=== PATIENT | male | born 2000 | race Caucasian/White ===

== ENCOUNTER 2018-02-01 10:33 | Observation (INO) | payer BC ==
[2018-02-01] MEDS ORDERED: Sodium Chloride 0.9% 10 ML Syringe FLUSH PRN ×2 (10:41→12:37)
[2018-02-01] MEDS ORDERED: LORazepam 2 MG/ML SDV IVPUSH ONE (10:42)
--- NOTE | 2018-02-01 10:46 | EDM.PDOC ---
ED HPI GENERAL MEDICAL PROBLEM - General Chief Complaint: Chest Pain Stated Complaint: DIZZY LIGHT HEADED CHEST PAIN Time Seen by Provider: 02/01/18 10:36 Source of Information: Reports: Patient, RN Notes Reviewed History Limitations: Reports: No Limitations - History of Present Illness INITIAL COMMENTS - FREE TEXT/NARRATIVE: 17-year-old gentleman presents to the emergency department day complaint of chest pain shortness of breath and diaphoresis, he states the pain started early this morning and has progressively gotten worse, he does admit to wake boarding over the weekend he did have some white bouts where he landed on his chest and abdomen but was able to function fine afterwards. He has no past medical history Chest Pain Score (Numeric/FACES): 9 - Related Data Allergies Allergy/AdvReac Type Severity Reaction Status Date / Time No Known Allergies Allergy Verified 02/01/18 10:41 Home Meds: Home Meds NK [No Known Home Meds] 02/01/18 [History] Past Medical History - Past Health History Medical/Surgical History: Denies Medical/Surgical History Social & Family History - Tobacco Use Smoking Status *Q: Never Smoker ED ROS GENERAL - Review of Systems Review Of Systems: See Below Constitutional: Reports: No Symptoms HEENT: Reports: No Symptoms Respiratory: Reports: Shortness of Breath. Denies: Cough, Sputum Cardiovascular: Reports: Chest Pain GI/Abdominal: Reports: Nausea Musculoskeletal: Reports: No Symptoms Skin: Reports: No Symptoms Neurological: Reports: No Symptoms Psychiatric: Reports: No Symptoms ED EXAM, GENERAL - Physical Exam Exam: See Below Free Text/Narrative:: General: Male, moderate discomfort secondary to pain, alert and oriented x3 HEENT: head is atraumatic normocephalic, eyes pupils equal round reactive to light, sclera clear no conjunctivitis appreciated. Ears tympanic membranes clear and [place] landmarks and light reflex are present bilaterally canals are clear. Nose no septal deviation, nares are clear, no blood present. Mouth mucosa is moist and pink no erythema or exudate noted in soft palate, tongue is midline uvula is midline, dentition with braces is intact. Neck: Supple no thyromegaly no tracheal deviation. Nodes: Cervical nodes subclavicular nodes nontender no palpable lymphadenopathy noted. Lungs: clear to auscultation bilaterally with symmetrical respirations, no adventitious noise appreciated. CV: Regular rate and rhythm S1 and S2 appreciated no murmurs rubs or gallops noted. Abdomen: Soft, nontender, no palpable masses or organomegaly appreciated, no distention no guarding bowel sounds are present, . Neuro: Cranial nerves II through XII grossly intact Skin: Warm and dry, intact Extremities: No lower extremity edema appreciated, pedal pulse is +2. E-FAST exam Subcostal and parasternal view: reveals no hematoma pericardium four-chamber heart with good activity Right sided abdominal view: reveals Louis's pouch no hemothorax Left-sided abdominal view: spleen and kidney no hemothorax noted Pelvic view: bladder identified no peritoneal blood noted Pleural view: reveal sliding sign bilaterally no pneumothorax noted Course - Vital Signs Last Recorded V/S: Last Vital Signs Temp 99.7 F 02/01/18 16:19 Pulse 75 02/01/18 17:03 Resp 18 02/01/18 17:03 BP 118/78 02/01/18 17:03 Pulse Ox 100 02/01/18 17:03 - Orders/Labs/Meds Orders: Active Orders 24 hr Category Date Time Status Cardiac Monitoring [RC] .As Directed Care 02/01/18 10:41 Active EKG Documentation Completion [RC] ASDIRECTED Care 02/01/18 10:42 Active Peripheral IV Care [RC] . DIRECTED Care 02/01/18 10:42 Active Peripheral IV Care [RC] . DIRECTED Care 02/01/18 12:38 Active DRUG SCREEN, URINE [URCHEM] Stat Lab 02/01/18 14:08 Ordered UA W/MICROSCOPIC [URIN] Stat Lab 02/01/18 14:08 Ordered Sodium Chloride 0.9% [Normal Saline] 78 ml Med 02/01/18 12:45 Active IV ASDIRECTED Sodium Chloride 0.9% [Saline Flush] Med 02/01/18 10:41 Active 10 ml FLUSH ASDIRECTED PRN Sodium Chloride 0.9% [Saline Flush] Med 02/01/18 12:37 Active 10 ml FLUSH ASDIRECTED PRN Peripheral IV Insertion Adult [OM.PC] Stat Oth 02/01/18 10:41 Ordered Peripheral IV Insertion Adult [OM.PC] Urgent Oth 02/01/18 12:37 Ordered Saline Lock Insert [OM.PC] Stat Oth 02/01/18 10:41 Ordered EKG 12 Lead [EK] Stat Ther 02/01/18 10:42 Ordered Medication Orders Sodium Chloride (Normal Saline) 78 mls @ 3.5 mls/sec IV ASDIRECTED WILLIAM Last Admin: 02/01/18 13:13 Dose: 3.5 mls/sec Sodium Chloride (Saline Flush) 10 ml FLUSH ASDIRECTED PRN PRN Reason: Keep Vein Open Last Admin: 02/01/18 11:21 Dose: 10 ml Sodium Chloride (Saline Flush) 10 ml FLUSH ASDIRECTED PRN PRN Reason: Keep Vein Open Labs: Laboratory Tests 02/01/18 02/01/18 02/01/18 Range/Units 10:35 10:41 10:41 WBC 11.7 H (4.5-11.0) K/uL RBC 5.56 (4.30-5.90) M/uL Hgb 15.9 H (12.0-15.0) g/dL Hct 45.0 (40.0-54.0) % MCV 81 (80-98) fL MCH 29 (27-31) pg MCHC 35 (32-36) % Plt Count 212 (150-400) K/uL Neut % (Auto) 70 H (36-66) % Lymph % (Auto) 14 L (24-44) % [place] % (Auto) 16 H (2-6) % Eos % (Auto) 0 L (2-4) % Baso % (Auto) 0 (0-1) % Sodium 134 L (140-148) mmol/L Potassium 3.3 L (3.6-5.2) mmol/L Chloride 100 (100-108) mmol/L Carbon Dioxide 21 (21-32) mmol/L Anion Gap 16.3 H (5.0-14.0) mmol/L BUN 15 (7-18) mg/dL Creatinine 1.0 (0.8-1.3) mg/dL Est Cr Clr Drug Dosing TNP Estimated GFR (MDRD) > 60 (>60) Glucose 110 H (74-106) mg/dL Calcium 9.0 (8.5-10.1) mg/dL Total Bilirubin 0.7 (0.2-1.0) mg/dL AST 18 (15-37) U/L ALT 26 (12-78) U/L Alkaline Phosphatase 90 (46-116) U/L Troponin I < 0.017 (0.000-0.056) ng/mL C-Reactive Protein (0.0-0.3) mg/dL Total Protein 7.3 (6.4-8.2) g/dL Albumin 4.0 (3.4-5.0) g/dL Globulin 3.3 (2.3-3.5) g/dL Albumin/Globulin Ratio 1.2 (1.2-2.2) Lipase 86 (73-393) U/L Urine Color Urine Appearance Urine pH (4.5-8.0) Ur Specific [place] (1.008-1.030) Urine Protein (NEGATIVE) mg/dL Urine Glucose (UA) (NEGATIVE) mg/dL Urine Ketones (NEGATIVE) mg/dL Urine Occult Blood (NEGATIVE) Urine Nitrite (NEGAITVE) Urine Bilirubin (NEGATIVE) Urine Urobilinogen (NORMAL) mg/dL Ur Leukocyte Esterase (NEGATIVE) Urine RBC (0-5) Urine WBC (0-5) Ur Epithelial Cells Amorphous Sediment Urine Bacteria Urine Mucus Urine Opiates Screen (NEGATIVE) Ur Oxycodone Screen (NEGATIVE) Urine Methadone Screen (NEGATIVE) Ur Propoxyphene Screen (NEGATIVE) Ur Barbiturates Screen (NEGATIVE) Ur Tricyclics Screen (NEGATIVE) Ur Phencyclidine Scrn (NEGATIVE) Ur Amphetamine Screen (NEGATIVE) U Methamphetamines Scrn (NEGATIVE) Urine MDMA Screen (NEGATIVE) U Benzodiazepines Scrn (NEGATIVE) U Cocaine Metab Screen (NEGATIVE) U Marijuana (THC) Screen (NEGATIVE) 02/01/18 02/01/18 02/01/18 Range/Units 10:42 14:08 14:08 WBC (4.5-11.0) K/uL RBC (4.30-5.90) M/uL Hgb (12.0-15.0) g/dL Hct (40.0-54.0) % MCV (80-98) fL MCH (27-31) pg MCHC (32-36) % Plt Count (150-400) K/uL Neut % (Auto) (36-66) % Lymph % (Auto) (24-44) % [place] % (Auto) (2-6) % Eos % (Auto) (2-4) % Baso % (Auto) (0-1) % Sodium (140-148) mmol/L Potassium (3.6-5.2) mmol/L Chloride (100-108) mmol/L Carbon Dioxide (21-32) mmol/L Anion Gap (5.0-14.0) mmol/L BUN (7-18) mg/dL Creatinine (0.8-1.3) mg/dL Est Cr Clr Drug Dosing Estimated GFR (MDRD) (>60) Glucose (74-106) mg/dL Calcium (8.5-10.1) mg/dL Total Bilirubin (0.2-1.0) mg/dL AST (15-37) U/L ALT (12-78) U/L Alkaline Phosphatase (46-116) U/L Troponin I (0.000-0.056) ng/mL C-Reactive Protein 2.72 H (0.0-0.3) mg/dL Total Protein (6.4-8.2) g/dL Albumin (3.4-5.0) g/dL Globulin (2.3-3.5) g/dL Albumin/Globulin Ratio (1.2-2.2) Lipase (73-393) U/L Urine Color Yellow Urine Appearance Clear Urine pH 7.0 (4.5-8.0) Ur Specific [place] 1.005 L (1.008-1.030) Urine Protein Trace (NEGATIVE) mg/dL Urine Glucose (UA) Normal (NEGATIVE) mg/dL Urine Ketones 50 H (NEGATIVE) mg/dL Urine Occult Blood Negative (NEGATIVE) Urine Nitrite Negative (NEGAITVE) Urine Bilirubin Small (NEGATIVE) Urine Urobilinogen 4 (NORMAL) mg/dL Ur Leukocyte Esterase Negative (NEGATIVE) Urine RBC 0-5 (0-5) Urine WBC 0-5 (0-5) Ur Epithelial Cells Not seen Amorphous Sediment Not seen Urine Bacteria Not seen Urine Mucus Not seen Urine Opiates Screen Negative (NEGATIVE) Ur Oxycodone Screen Negative (NEGATIVE) Urine Methadone Screen Negative (NEGATIVE) Ur Propoxyphene Screen Negative (NEGATIVE) Ur Barbiturates Screen Negative (NEGATIVE) Ur Tricyclics Screen Negative (NEGATIVE) Ur Phencyclidine Scrn Negative (NEGATIVE) Ur Amphetamine Screen Negative (NEGATIVE) U Methamphetamines Scrn Negative (NEGATIVE) Urine MDMA Screen Negative (NEGATIVE) U Benzodiazepines Scrn Presumptive positive H (NEGATIVE) U Cocaine Metab Screen Negative (NEGATIVE) U Marijuana (THC) Screen Negative (NEGATIVE) Meds: Medications Generic Name Dose Route Start Last Admin Trade Name Freq PRN Reason Stop Dose Admin Sodium Chloride 78 mls @ 3.5 mls/sec 02/01/18 12:45 02/01/18 13:13 Normal Saline IV 3.5 mls/sec ASDIRECTED WILLIAM Administration Sodium Chloride 10 ml 02/01/18 10:41 02/01/18 11:21 Saline Flush FLUSH 10 ml ASDIRECTED PRN Administration Keep Vein Open Sodium Chloride 10 ml 02/01/18 12:37 Saline Flush FLUSH ASDIRECTED PRN Keep Vein Open Discontinued Medications Generic Name Dose Route Start Last Admin Trade Name Freq PRN Reason Stop Dose Admin Al Hydroxide/Mg Hydroxide 15 0 ml 02/01/18 15:02 02/01/18 15:24 ml/ Lidocaine HCl 15 ml PO 02/01/18 15:03 15 ml ONETIME ONE Administration Fentanyl 50 mcg 02/01/18 12:38 02/01/18 12:45 Sublimaze IVPUSH 02/01/18 12:39 50 mcg ONETIME ONE Administration Fentanyl 50 mcg 02/01/18 17:17 02/01/18 17:25 Sublimaze IVPUSH 02/01/18 17:18 50 mcg ONETIME ONE Administration Hyoscyamine 0.125 mg 02/01/18 14:32 02/01/18 14:52 Hyomax-Sl SL 02/01/18 14:33 0.125 mg ONETIME ONE Administration Lactated Ringer's 1,000 mls @ 999 mls/hr 02/01/18 12:37 02/01/18 12:45 Ringers, Lactated IV 02/01/18 13:37 999 mls/hr BOLUS ONE Administration Iopamidol 124 ml 02/01/18 12:45 02/01/18 13:12 Isovue-300 (61%) IV 150 ml . DIRECTED WILLIAM Administration Ketorolac Tromethamine 30 mg 02/01/18 11:41 02/01/18 11:50 Toradol IVPUSH 02/01/18 11:42 30 mg ONETIME ONE Administration Lorazepam 1 mg 02/01/18 10:42 02/01/18 10:55 Ativan IVPUSH 02/01/18 10:43 1 mg ONETIME ONE Administration Ondansetron HCl 4 mg 02/01/18 11:41 02/01/18 11:51 Zofran IVPUSH 02/01/18 11:42 4 mg ONETIME ONE Administration Pantoprazole Sodium 40 mg 02/01/18 16:11 02/01/18 16:36 Protonix Iv IVPUSH 02/01/18 16:12 40 mg ONETIME ONE Administration Sodium Chloride 10 ml 02/01/18 12:44 02/01/18 13:12 Saline Flush FLUSH 02/01/18 12:45 10 ml ONETIME ONE Administration Departure - Departure Time of Disposition: 17:33 Disposition: Admitted As Inpatient 64 Condition: Good Clinical Impression: Epigastric abdominal pain - My Orders Last 24 Hours: My Active Orders 02/01/18 10:41 Cardiac Monitoring [RC] .As Directed Sodium Chloride 0.9% [Saline Flush] 10 ml FLUSH ASDIRECTED PRN Peripheral IV Insertion Adult [OM.PC] Stat Saline Lock Insert [OM.PC] Stat 02/01/18 10:42 EKG Documentation Completion [RC] ASDIRECTED Peripheral IV Care [RC] . DIRECTED EKG 12 Lead [EK] Stat 02/01/18 12:37 Sodium Chloride 0.9% [Saline Flush] 10 ml FLUSH ASDIRECTED PRN Peripheral IV Insertion Adult [OM.PC] Urgent 02/01/18 12:38 Peripheral IV Care [RC] . DIRECTED 02/01/18 12:45 Sodium Chloride 0.9% [Normal Saline] 78 ml IV ASDIRECTED 02/01/18 14:08 DRUG SCREEN, URINE [URCHEM] Stat UA W/MICROSCOPIC [URIN] Stat - Assessment/Plan Last 24 Hours: My Active Orders 02/01/18 10:41 Cardiac Monitoring [RC] .As Directed Sodium Chloride 0.9% [Saline Flush] 10 ml FLUSH ASDIRECTED PRN Peripheral IV Insertion Adult [OM.PC] Stat Saline Lock Insert [OM.PC] Stat 02/01/18 10:42 EKG Documentation Completion [RC] ASDIRECTED Peripheral IV Care [RC] . DIRECTED EKG 12 Lead [EK] Stat 02/01/18 12:37 Sodium Chloride 0.9% [Saline Flush] 10 ml FLUSH ASDIRECTED PRN Peripheral IV Insertion Adult [OM.PC] Urgent 02/01/18 12:38 Peripheral IV Care [RC] . DIRECTED 02/01/18 12:45 Sodium Chloride 0.9% [Normal Saline] 78 ml IV ASDIRECTED 02/01/18 14:08 DRUG SCREEN, URINE [URCHEM] Stat UA W/MICROSCOPIC [URIN] Stat Plan: Assessment Acuity = acute Site and laterality = epigastric pain Etiology = unclear etiology Manifestations = none Location of injury = Home Lab values = WBC elevated 11.7 consistent with leukocytosis, sodium 134 consistent hyponatremia potassium 3.3 consistent hypokalemia, CRP elevated 2.72 months or significance, lipase normal at 86 urinalysis reveals 50 ketones consistent ketonuria urine drug screen is negative, CT scan of the abdomen shows no acute process Plan He received a variety medications including Ativan, Toradol, Anaspaz, GI cocktail with no relief fentanyl did subside the pain called discussed the case with hospitalist it operations specialist he agreed to come and evaluate the patient emergency department for admission, also discussed case with general surgery they agreed to do an EGD evaluation This note was dictated using [employer] voice recognition software please call with any questions on syntax or grammar.
--- NOTE | 2018-02-01 11:32 | CR ---
CHEST: 2 view CLINICAL HISTORY:Chest pain COMPARISON:None FINDINGS: Lung hendrix are clear. Heart and pulmonary vascularity appear normal. No effusions are see n. IMPRESSION: No acute cardiopulmonary process
[2018-02-01] MEDS ORDERED: Ketorolac 30 MG/ML SDV IVPUSH ONE (11:41)
[2018-02-01] MEDS ORDERED: Ondansetron 4 MG/2 ML SDV IVPUSH ONE (11:41)
[2018-02-01] MEDS ORDERED: Lactated Ringers 1,000 ML IV ONE (12:37)
[2018-02-01] MEDS ORDERED: fentaNYL 100 MCG/2 ML SDV IVPUSH ONE ×3 (12:38→19:09)
[2018-02-01] MEDS ORDERED: Iopamidol 612 MG/ML 150 ML Bottle IV SCH (12:45)
[2018-02-01] MEDS: Sodium Chloride 0.9% 10 ML Syringe FLUSH ONE (13:12)
--- NOTE | 2018-02-01 13:16 | CT ---
Abdomen Pelvis w Cont CLINICAL HISTORY: Epigastric pain COMPARISON: None. TECHNIQUE: Axial tomographic images are obtained from the dome of the diaphragm to the pubic symphysi s without IV contrast enhancement. No oral contrast was used. Auto dosage reduction and iterative rec onstruction techniques employed. FINDINGS: The lung bases are clear. The liver shows no mass or biliary dilatation. The gallbladder perez s a normal appearance. The spleen has a normal size and shape. The pancreas shows no mass or inflamma tory change. The adrenal glands appear normal bilaterally. The kidneys shows no mass or hydronephrosi s. Ureters have a normal course and caliber. The aorta has a normal contour. There is no suspicious r etroperitoneal adenopathy. Abdominal pelvic fat planes and low pelvic side gary are well demarcated. The bladder has normal con tour. The appendix is normal contour. IMPRESSION: No mass, adenopathy or inflammatory change.
[2018-02-01] MEDS ORDERED: Hyoscyamine 0.125 MG Tab.SL SL ONE (14:32)
[2018-02-01] MEDS ORDERED: Alum Hydrox/Mag Hydrox/Simeth 15 ML, Lidocaine 2% 15 ML PO ONE ×2 (15:02)
[2018-02-01] MEDS ORDERED: Pantoprazole 40 MG Vial IVPUSH ONE ×2 (16:11→19:53)
[2018-02-01] MEDS ORDERED: Propofol 200 MG/20 ML SDV ONE (17:40)
[2018-02-01] MEDS ORDERED: fentaNYL 100 MCG/2 ML SDV ONE (17:40)
[2018-02-01] MEDS ORDERED: Midazolam 1 MG/ML 2 ML SDV ONE (17:40)
[2018-02-01] MEDS ORDERED: Ondansetron 4 MG Tab.DIS PO PRN (19:53)
[2018-02-01] MEDS ORDERED: Acetaminophen 325 MG Tab PO PRN (19:53)
[2018-02-01] MEDS ORDERED: LORazepam 2 MG/ML SDV IV PRN (19:53)
[2018-02-01] MEDS ORDERED: Docusate Sodium 100 MG Cap PO PRN (19:53)
[2018-02-01] MEDS ORDERED: Pantoprazole 80 MG in Sodium Chloride 0.9% 100 ML IV SCH (19:53)
[2018-02-01] MEDS ORDERED: Naloxone 0.4 MG/ML SDV IVPUSH PRN (19:53)
[2018-02-01] MEDS ORDERED: fentaNYL/Normal Saline 600 MCG/30 ML PCA Vial IV PRN (19:53)
[2018-02-01] MEDS ORDERED: Ondansetron 4 MG/2 ML SDV IV PRN (19:53)
[2018-02-01] MEDS ORDERED: Zolpidem 5 MG Tab PO PRN (19:53)
[2018-02-01] MEDS: Sodium Chloride 0.9% 1,000 ML IV SCH (20:43)
--- NOTE | 2018-02-01 20:47 | OR ---
DATE OF PROCEDURE: 02/01/2018 PREOPERATIVE DIAGNOSIS: Epigastric and chest pain. POSTOPERATIVE DIAGNOSES: 1. Epigastric and chest pain. 2. Gastroesophageal reflux disease. PROCEDURE: Esophagogastroduodenoscopy with biopsy of gastroesophageal junction. SURGEON: Andi Amador MD. ANESTHESIA: IV anesthesia with monitored anesthesia care. INDICATION: This 17-year-old white male presents to the emergency room complaining of severe epigastric and lower chest pain. He has had similar discomfort in the past but never as severe as this is. He has had an extensive workup, request is made for upper endoscopy. I counseled him for upper endoscopy with possible biopsy including risks and alternatives and he gave his informed consent to proceed. PROCEDURE IN DETAIL: The patient was placed in the left lateral decubitus position. IV anesthesia was administered by the anesthesia service. Time-out was held. The flexible video Olympus upper endoscope was passed through his mouth, down his esophagus and into his stomach. We encountered some food in his stomach. The scope was easily passed through the pylorus into the duodenum reaching its third portion. The scope was then slowly withdrawn examining the mucosa throughout. The duodenal mucosa appeared unremarkable. The scope was brought up through the pylorus. The antrum appeared unremarkable. The scope was retroflexed to visualize the proximal stomach which appeared unremarkable. We did aspirate as much fluid as we could from the stomach, but there was still retained food present. However, the mucosa was nice and pink with no evidence of inflammation. The scope was brought up through the GE junction. This was markedly abnormal with fingers of gastric mucosa going proximally up into the esophagus. We obtained multiple totalling six biopsies of the gastroesophageal junction. The scope was then brought proximally up through remainder of the esophagus which otherwise appeared unremarkable and it was removed. He tolerated the procedure well. Andi Amador MD /[id number]
--- NOTE | 2018-02-01 22:19 | PCM.HP ---
H&P History of Present Illness - General Date of Service: 02/01/18 Admit Problem/Dx: Admission Diagnosis/Problem Admission Diagnosis/Problem Gastroesophageal reflux disease Source of Information: Patient, Family, Provider, RN History Limitations: Reports: No Limitations - History of Present Illness Initial Comments - Free Text/Narative: 17-year-old gentleman presents to the emergency department day complaint of chest pain shortness of breath and diaphoresis, he states the pain started early this morning and has progressively gotten worse, he does admit to wake boarding over the weekend he did have some white bouts where he landed on his chest and abdomen but was able to function fine afterwards. He has no past medical history Chest Pain Score (Numeric/FA Lab values = WBC elevated 11.7 consistent with leukocytosis, sodium 134 consistent hyponatremia potassium 3.3 consistent hypokalemia, CRP elevated 2.72 months or significance, lipase normal at 86 urinalysis reveals 50 ketones consistent ketonuria urine drug screen is negative, CT scan of the abdomen shows no acute process Plan He received a variety medications including Ativan, Toradol, Anaspaz, GI cocktail with no relief fentanyl did subside the pain called discussed the case with hospitalist manager construction he agreed to come and evaluate the patient emergency department for admission, also discussed case with general surgery they agreed to do an EGD evaluation Surgery procedure: EGD abnormal, 6 biopsies pending. Onset of Symptoms: Reports: Sudden Symptom Onset Date: 02/01/18 Symptom Onset Time: 07:00 Duration of Symptoms: Reports: Hour(s): Location: Reports: Abdomen Quality: Reports: Sharp, Stabbing Severity: Severe Improves with: Reports: None Worsens with: Reports: None Context: Reports: Other (sudden onset of chest pain and upper abdominal pain.) Chest Pain Score (Numeric/FACES): 2 - Related Data Allergies/Adverse Reactions: Allergies Allergy/AdvReac Type Severity Reaction Status Date / Time No Known Allergies Allergy Verified 02/01/18 10:41 Home Medications: Home Meds NK [No Known Home Meds] 02/01/18 [History] Past Medical History - Past Health History Medical/Surgical History: Denies Medical/Surgical History Social & Family History - Tobacco Use Smoking Status *Q: Never Smoker Second Hand Smoke Exposure: Yes - Caffeine Use Caffeine Use: Reports: Soda Other Caffeine Use: occasional use - Alcohol Use Days Per Week of Alcohol Use: 1 Number of Drinks Per Day: 0 Total Drinks Per Week: 0 - Recreational Drug Use Recreational Drug Use: No - Living Situation & Occupation Living situation: Reports: Single, with Family Occupation: Student (lives with Parent (Maricruz Noonan, RN, 2nd Floor) and family in [place], [place]. attends Colleges at [employer].) H&P Review of Systems - Review of Systems: Review Of Systems: See Below General: Reports: Fatigue, Decreased Appetite HEENT: Reports: No Symptoms Pulmonary: Reports: No Symptoms Cardiovascular: Reports: Chest Pain Gastrointestinal: Reports: Abdominal Pain, Decreased Appetite, Nausea Genitourinary: Reports: No Symptoms Musculoskeletal: Reports: No Symptoms Skin: Reports: No Symptoms Psychiatric: Reports: No Symptoms Neurological: Reports: No Symptoms Hematologic/Lymphatic: Reports: No Symptoms Immunologic: Reports: No Symptoms Exam - Exam Exam: See Below - Vital Signs Vital Signs: Last Vital Signs Temp 36.4 C 02/01/18 20:12 Pulse 52 L 02/01/18 20:12 Resp 16 02/01/18 20:12 BP 135/70 02/01/18 20:12 Pulse Ox 100 02/01/18 20:12 Weight: 81.193 kg - Exam Quality Assessment: Other (IV access) General: Alert, Oriented, Cooperative, Sedated HEENT: PERRLA, Hearing Intact, Mucosa Moist & [place], Nares Patent, Normal Nasal Septum, Posterior Pharynx Clear, Conjunctiva Clear, EOMI, EACs Clear, TMs Clear Neck: Supple Lungs: Clear to Auscultation, Normal Respiratory Effort Cardiovascular: Regular Rate GI/Abdominal Exam: Distended, Tender, Other (hypoactive bowel sounds noted) (Male) Exam: Deferred Rectal (Males) Exam: Deferred Back Exam: Normal Inspection, Full Range of Motion, NT Extremities: Normal Inspection, Normal Range of Motion, Non-Tender, No Pedal Edema, Normal Capillary Refill Peripheral Pulses: 2+: Radial (L), Radial (R) Skin: Warm, Dry, Intact Neurological: Reflexes Equal Bilateral, Strength Equal Bilateral, Normal Speech , Normal Tone Neuro Extensive - Mental Status: Alert, Oriented x3, Normal Mood/Affect Neuro Extensive - Motor, Sensory, Reflexes: CN II-XII Intact, Normal Reflexes Psychiatric: Alert, Normal Affect, Normal Mood - Patient Data Lab Results Last 24 hrs: Laboratory Results - last 24 hr 02/01/18 02/01/18 02/01/18 Range/Units 10:35 10:41 10:41 WBC 11.7 H (4.5-11.0) K/uL RBC 5.56 (4.30-5.90) M/uL Hgb 15.9 H (12.0-15.0) g/dL Hct 45.0 (40.0-54.0) % MCV 81 (80-98) fL MCH 29 (27-31) pg MCHC 35 (32-36) % Plt Count 212 (150-400) K/uL Neut % (Auto) 70 H (36-66) % Lymph % (Auto) 14 L (24-44) % [place] % (Auto) 16 H (2-6) % Eos % (Auto) 0 L (2-4) % Baso % (Auto) 0 (0-1) % Sodium 134 L (140-148) mmol/L Potassium 3.3 L (3.6-5.2) mmol/L Chloride 100 (100-108) mmol/L Carbon Dioxide 21 (21-32) mmol/L Anion Gap 16.3 H (5.0-14.0) mmol/L BUN 15 (7-18) mg/dL Creatinine 1.0 (0.8-1.3) mg/dL Est Cr Clr Drug Dosing TNP Estimated GFR (MDRD) > 60 (>60) Glucose 110 H (74-106) mg/dL Calcium 9.0 (8.5-10.1) mg/dL Total Bilirubin 0.7 (0.2-1.0) mg/dL AST 18 (15-37) U/L ALT 26 (12-78) U/L Alkaline Phosphatase 90 (46-116) U/L Troponin I < 0.017 (0.000-0.056) ng/mL C-Reactive Protein (0.0-0.3) mg/dL Total Protein 7.3 (6.4-8.2) g/dL Albumin 4.0 (3.4-5.0) g/dL Globulin 3.3 (2.3-3.5) g/dL Albumin/Globulin Ratio 1.2 (1.2-2.2) Lipase 86 (73-393) U/L Urine Color Urine Appearance Urine pH (4.5-8.0) Ur Specific [place] (1.008-1.030) Urine Protein (NEGATIVE) mg/dL Urine Glucose (UA) (NEGATIVE) mg/dL Urine Ketones (NEGATIVE) mg/dL Urine Occult Blood (NEGATIVE) Urine Nitrite (NEGAITVE) Urine Bilirubin (NEGATIVE) Urine Urobilinogen (NORMAL) mg/dL Ur Leukocyte Esterase (NEGATIVE) Urine RBC (0-5) Urine WBC (0-5) Ur Epithelial Cells Amorphous Sediment Urine Bacteria Urine Mucus Urine Opiates Screen (NEGATIVE) Ur Oxycodone Screen (NEGATIVE) Urine Methadone Screen (NEGATIVE) Ur Propoxyphene Screen (NEGATIVE) Ur Barbiturates Screen (NEGATIVE) Ur Tricyclics Screen (NEGATIVE) Ur Phencyclidine Scrn (NEGATIVE) Ur Amphetamine Screen (NEGATIVE) U Methamphetamines Scrn (NEGATIVE) Urine MDMA Screen (NEGATIVE) U Benzodiazepines Scrn (NEGATIVE) U Cocaine Metab Screen (NEGATIVE) U Marijuana (THC) Screen (NEGATIVE) 02/01/18 02/01/18 02/01/18 Range/Units 10:42 14:08 14:08 WBC (4.5-11.0) K/uL RBC (4.30-5.90) M/uL Hgb (12.0-15.0) g/dL Hct (40.0-54.0) % MCV (80-98) fL MCH (27-31) pg MCHC (32-36) % Plt Count (150-400) K/uL Neut % (Auto) (36-66) % Lymph % (Auto) (24-44) % [place] % (Auto) (2-6) % Eos % (Auto) (2-4) % Baso % (Auto) (0-1) % Sodium (140-148) mmol/L Potassium (3.6-5.2) mmol/L Chloride (100-108) mmol/L Carbon Dioxide (21-32) mmol/L Anion Gap (5.0-14.0) mmol/L BUN (7-18) mg/dL Creatinine (0.8-1.3) mg/dL Est Cr Clr Drug Dosing Estimated GFR (MDRD) (>60) Glucose (74-106) mg/dL Calcium (8.5-10.1) mg/dL Total Bilirubin (0.2-1.0) mg/dL AST (15-37) U/L ALT (12-78) U/L Alkaline Phosphatase (46-116) U/L Troponin I (0.000-0.056) ng/mL C-Reactive Protein 2.72 H (0.0-0.3) mg/dL Total Protein (6.4-8.2) g/dL Albumin (3.4-5.0) g/dL Globulin (2.3-3.5) g/dL Albumin/Globulin Ratio (1.2-2.2) Lipase (73-393) U/L Urine Color Yellow Urine Appearance Clear Urine pH 7.0 (4.5-8.0) Ur Specific [place] 1.005 L (1.008-1.030) Urine Protein Trace (NEGATIVE) mg/dL Urine Glucose (UA) Normal (NEGATIVE) mg/dL Urine Ketones 50 H (NEGATIVE) mg/dL Urine Occult Blood Negative (NEGATIVE) Urine Nitrite Negative (NEGAITVE) Urine Bilirubin Small (NEGATIVE) Urine Urobilinogen 4 (NORMAL) mg/dL Ur Leukocyte Esterase Negative (NEGATIVE) Urine RBC 0-5 (0-5) Urine WBC 0-5 (0-5) Ur Epithelial Cells Not seen Amorphous Sediment Not seen Urine Bacteria Not seen Urine Mucus Not seen Urine Opiates Screen Negative (NEGATIVE) Ur Oxycodone Screen Negative (NEGATIVE) Urine Methadone Screen Negative (NEGATIVE) Ur Propoxyphene Screen Negative (NEGATIVE) Ur Barbiturates Screen Negative (NEGATIVE) Ur Tricyclics Screen Negative (NEGATIVE) Ur Phencyclidine Scrn Negative (NEGATIVE) Ur Amphetamine Screen Negative (NEGATIVE) U Methamphetamines Scrn Negative (NEGATIVE) Urine MDMA Screen Negative (NEGATIVE) U Benzodiazepines Scrn Presumptive positive H (NEGATIVE) U Cocaine Metab Screen Negative (NEGATIVE) U Marijuana (THC) Screen Negative (NEGATIVE) Result Diagrams: 02/01/18 10:41 02/01/18 10:41 - Problem List (1) Gastroesophageal reflux disease SNOMED Code(s): 244831098 ICD Code: K21.9 - GASTRO-ESOPHAGEAL REFLUX DISEASE WITHOUT ESOPHAGITIS Status: Acute Priority: High Current Visit: Yes Qualifiers: Esophagitis presence: esophagitis presence not specified Qualified Code(s) : K21.9 - Gastro-esophageal reflux disease without esophagitis Problem List Initiated/Reviewed/Updated: Yes Orders Last 24hrs: Active Orders 24 hr Category Date Time Status Patient Status [ADT] Routine ADT 02/01/18 19:53 Active Cardiac Monitoring [RC] .As Directed Care 02/01/18 19:53 Active Communication Order [RC] STAT Care 02/01/18 19:53 Active Intake and Output [RC] QSHIFT Care 02/01/18 19:53 Active Notify Provider Vital Signs [RC] ASDIRECTED Care 02/01/18 19:53 Active Notify Provider [RC] PRN Care 02/01/18 19:53 Active Oxygen Therapy [RC] PRN Care 02/01/18 19:53 Active SOFTWARE TEST ENGINEER Record [RC] PER UNIT ROUTINE Care 02/01/18 19:53 Active Peripheral IV Care [RC] . DIRECTED Care 02/01/18 10:42 Inactive Peripheral IV Care [RC] . DIRECTED Care 02/01/18 12:38 Inactive Pulse Oximetry [RC] CONTINUOUS Care 02/01/18 19:53 Active Up ad Jannette [RC] ASDIRECTED Care 02/01/18 19:53 Active VTE/DVT Education [RC] Per Unit Routine Care 02/01/18 19:53 Active Vital Signs [RC] Q4H Care 02/01/18 19:53 Active Mechanical Soft Diet [DIET] Diet 02/01/18 Breakfast Active BASIC METABOLIC PANEL,BMP [CHEM] AM Lab 02/02/18 05:11 Ordered CBC WITH AUTO DIFF [HEME] AM Lab 02/02/18 05:11 Ordered Acetaminophen [Tylenol] Med 02/01/18 19:53 Active 650 mg PO Q4H PRN Docusate Sodium [Colace] Med 02/01/18 19:53 Active 100 mg PO BID PRN LORazepam [Ativan] Med 02/01/18 19:53 Active 1 mg IV Q6H PRN Naloxone [Narcan] Med 02/01/18 19:53 Active 0.4 mg IVPUSH Q2M PRN Ondansetron [Zofran ODT] Med 02/01/18 19:53 Active 4 mg PO Q6H PRN Ondansetron [Zofran] Med 02/01/18 19:53 Active 4 mg IV Q4H PRN Pantoprazole [ProTONIX IV] 80 mg Med 02/01/18 19:53 Active Sodium Chloride 0.9% [Normal Saline] 100 ml IV ASDIRECTED Sodium Chloride 0.9% [Normal Saline] 1,000 ml Med 02/01/18 19:53 Active IV ASDIRECTED Zolpidem [Ambien] Med 02/01/18 19:53 Active 5 mg PO BEDTIME PRN fentaNYL/Normal Saline [fentaNYL in NS 20 MCG/ML 30 ML Med 02/01/18 19:53 Active SOFTWARE TEST ENGINEER] See Protocol IV ASDIRECTED PRN Medication Discontinuation Instructions [OM.PC] Stat Oth 02/01/18 19:53 Ordered Resuscitation Status Routine Resus Stat 02/01/18 19:20 Ordered EKG 12 Lead [EK] Stat Ther 02/01/18 10:42 Stop Req Medication Orders Acetaminophen (Tylenol) 650 mg PO Q4H PRN PRN Reason: Pain (Mild 1-3)/fever Docusate Sodium (Colace) 100 mg PO BID PRN PRN Reason: Constipation Fentanyl Citrate (Fentanyl In Ns 20 Mcg/Ml 30 Ml Claims Clerk) 0 mcg IV ASDIRECTED PRN; Protocol PRN Reason: Pain Last Admin: 02/01/18 20:44 Dose: 600 mcg Pantoprazole Sodium 80 mg/ (Sodium Chloride) 100 mls @ 10 mls/hr IV ASDIRECTED WILLIAM Last Admin: 02/01/18 20:49 Dose: 10 mls/hr Sodium Chloride (Normal Saline) 1,000 mls @ 125 mls/hr IV ASDIRECTED WILLIAM Last Admin: 02/01/18 20:43 Dose: 125 mls/hr Lorazepam (Ativan) 1 mg IV Q6H PRN PRN Reason: Nausea/Vomiting Naloxone HCl (Narcan) 0.4 mg IVPUSH Q2M PRN PRN Reason: Respiratory Distress Ondansetron HCl (Zofran Odt) 4 mg PO Q6H PRN PRN Reason: Nausea able to take PO Ondansetron HCl (Zofran) 4 mg IV Q4H PRN PRN Reason: Nausea/Vomiting Zolpidem Tartrate (Ambien) 5 mg PO BEDTIME PRN PRN Reason: Sleep Assessment/Plan Comment:: ASSESSMENT / PLAN: -This a 17 year old male admitted from ER/Same day surgery for abdominal pain. This young man developed sudden onset of acute chest and epigastric pain. Gera reports he is in excellent health, does not take any prescription drugs, no drinking, no tobacco use, no oral tobacco use, does not drink coffee, energy drinks. denies any illegal drug use. He does not go to [facility] unless he has strep throat or acute illness. He had an extensive workup in ER, which included a chest xray, CT scan of abdomen-pelvis, EKG, troponin and labs. All labs and imaging negative for acute pathology. He was taken to Surgery for EGD by Dr. Foote, see full operative report, reports abnormalities of [place], 6 biopsies taken during procedure. will admit to OBS for pain control and further monitoring. Plan : GERD -Admit to [address] [place] [address] for further monitoring and pain control -IV fluids for rehydration NS at 125 mL per hour -IV Protonix drip at 8mg/hr, given total to IV Protonix 80mg prior to start of drip. -IV SOFTWARE TEST ENGINEER pump for pain control -Advise to notify nurses of any chest pain or other symptoms -monitor I & O -a.m. labs: CBC, BMP Maintenance issues -Orders home meds: no chronic medications noted -Nutrition: Mechanical soft, low residual, no coffee, tomatoes, citrus, avoid fresh fruits and veggies diet -Moya catheter not indicated at this time -DVT: ambulate -GI Prophalaxis: IV Protonix drip CODE STATUS: Full Admission status: Admit to Observation -I expect this patient to stay less than 24 hours, not to exceed 96 hours for evaluation and management of this problem. Disposition: Home Primary care provider: [facility], Provider manager construction. Hospitalist: Dr. Stroud Attending: Dr. Amador
[2018-02-02] MEDS: Sodium Chloride 0.9% 1,000 ML IV SCH (04:42)
--- NOTE | 2018-02-02 11:00 | PCM.DCSUM1 ---
Discharge Summary - Hospital Course Brief History: Gera is a 17-year-old gentleman who was admitted to observation status through the emergency department with severe epigastric pain secondary to esophageal reflux and esophageal ulcers. - Discharge Data Discharge Date: 02/02/18 Discharge Disposition: Home, Self-Care 01 Condition: Good - Discharge Diagnosis/Problem(s) (1) Esophageal ulceration SNOMED Code(s): 59946697 ICD Code: K22.10 - ULCER OF ESOPHAGUS WITHOUT BLEEDING Status: Acute Current Visit: Yes (2) Gastroesophageal reflux disease SNOMED Code(s): 784512359 ICD Code: K21.9 - GASTRO-ESOPHAGEAL REFLUX DISEASE WITHOUT ESOPHAGITIS Status: Acute Priority: High Current Visit: Yes Qualifiers: Esophagitis presence: esophagitis presence not specified Qualified Code(s) : K21.9 - Gastro-esophageal reflux disease without esophagitis - Patient Summary/Data Hospital Course: 17-year-old gentleman presents to the emergency department with a complaint of chest pain shortness of breath and diaphoresis, he states the pain started early this morning and has progressively gotten worse, he does admit to wake boarding over the weekend he did have some wipeouts where he landed on his chest and abdomen but was able to function fine afterwards. He has no past medical history and is otherwise been feeling well. Pain started within the last 24 hours and is described as intense severe occurring in the upper abdomen. Evaluation in the emergency department initially was unremarkable including CT scan chest x-ray and laboratory tests. He was seen and evaluated by Dr. Amador in the emergency department for surgical consult, EGD was performed which did show evidence of esophageal inflammation and ulcers. On admission he was given 80 mg of IV Protonix and started on a continuous infusion of Protonix 8 mg per hour because of his severe pain. By the following morning he was feeling significantly improved with almost total resolution of the pain. Biopsies obtained at the time of EGD are pending on discharge. He will be given written information concerning esophageal reflux as well as diet changes. I've recommended that he maintain a soft diet over the next week to 10 days. He will be placed on oral Protonix 40 mg twice daily for 2 weeks and then once daily thereafter. Activity will be as tolerated and a follow-up appointment will be scheduled with Dr. Palomino within one week. - Patient Instructions Diet: GI Soft/Low Residue/Low Fiber Activity: As Tolerated Other/Special Instructions: Please schedule follow-up appointment with Dr. Palomino within one week. - Discharge Plan Prescriptions/Med Rec: Pantoprazole Sodium [Protonix] 40 mg PO BID #30 tablet. Home Medications: Home Meds Pantoprazole Sodium [Protonix] 40 mg PO BID #30 tablet. 02/02/18 [Rx] Patient Handouts: Heartburn, Food Choices for Gastroesophageal Reflux Disease, Adult, Gastroesophageal Reflux Disease, Adult Referrals: Trey Palomino MD [Physician] - - Discharge Summary/Plan Comment DC Time >30 min.: No - Patient Data Vitals - Most Recent: Last Vital Signs Temp 96.3 F 02/02/18 07:00 Pulse 48 L 02/02/18 07:00 Resp 16 02/02/18 07:00 BP 111/62 02/02/18 07:00 Pulse Ox 98 02/02/18 07:43 Weight - Most Recent: 179 lb I&O - Last 24 hours: Intake & Output 02/01/18 02/02/18 02/02/18 22:59 06:59 14:59 Intake Total 1331 Output Total 100 950 Balance -100 381 Lab Results - Last 24 hrs: Laboratory Results - last 24 hr 02/01/18 02/01/18 02/01/18 Range/Units 10:35 10:41 10:42 WBC (4.5-11.0) K/uL RBC (4.30-5.90) M/uL Hgb (12.0-15.0) g/dL Hct (40.0-54.0) % MCV (80-98) fL MCH (27-31) pg MCHC (32-36) % Plt Count (150-400) K/uL Neut % (Auto) (36-66) % Lymph % (Auto) (24-44) % [place] % (Auto) (2-6) % Eos % (Auto) (2-4) % Baso % (Auto) (0-1) % Sodium 134 L (140-148) mmol/L Potassium 3.3 L (3.6-5.2) mmol/L Chloride 100 (100-108) mmol/L Carbon Dioxide 21 (21-32) mmol/L Anion Gap 16.3 H (5.0-14.0) mmol/L BUN 15 (7-18) mg/dL Creatinine 1.0 (0.8-1.3) mg/dL Est Cr Clr Drug Dosing TNP Estimated GFR (MDRD) > 60 (>60) Glucose 110 H (74-106) mg/dL Calcium 9.0 (8.5-10.1) mg/dL Total Bilirubin 0.7 (0.2-1.0) mg/dL AST 18 (15-37) U/L ALT 26 (12-78) U/L Alkaline Phosphatase 90 (46-116) U/L Troponin I < 0.017 (0.000-0.056) ng/mL C-Reactive Protein 2.72 H (0.0-0.3) mg/dL Total Protein 7.3 (6.4-8.2) g/dL Albumin 4.0 (3.4-5.0) g/dL Globulin 3.3 (2.3-3.5) g/dL Albumin/Globulin Ratio 1.2 (1.2-2.2) Lipase 86 (73-393) U/L Urine Color Urine Appearance Urine pH (4.5-8.0) Ur Specific [place] (1.008-1.030) Urine Protein (NEGATIVE) mg/dL Urine Glucose (UA) (NEGATIVE) mg/dL Urine Ketones (NEGATIVE) mg/dL Urine Occult Blood (NEGATIVE) Urine Nitrite (NEGAITVE) Urine Bilirubin (NEGATIVE) Urine Urobilinogen (NORMAL) mg/dL Ur Leukocyte Esterase (NEGATIVE) Urine RBC (0-5) Urine WBC (0-5) Ur Epithelial Cells Amorphous Sediment Urine Bacteria Urine Mucus Urine Opiates Screen (NEGATIVE) Ur Oxycodone Screen (NEGATIVE) Urine Methadone Screen (NEGATIVE) Ur Propoxyphene Screen (NEGATIVE) Ur Barbiturates Screen (NEGATIVE) Ur Tricyclics Screen (NEGATIVE) Ur Phencyclidine Scrn (NEGATIVE) Ur Amphetamine Screen (NEGATIVE) U Methamphetamines Scrn (NEGATIVE) Urine MDMA Screen (NEGATIVE) U Benzodiazepines Scrn (NEGATIVE) U Cocaine Metab Screen (NEGATIVE) U Marijuana (THC) Screen (NEGATIVE) 02/01/18 02/01/18 02/02/18 Range/Units 14:08 14:08 04:50 WBC 9.1 (4.5-11.0) K/uL RBC 4.96 (4.30-5.90) M/uL Hgb 13.9 D (12.0-15.0) g/dL Hct 40.9 (40.0-54.0) % MCV 83 (80-98) fL MCH 28 (27-31) pg MCHC 34 (32-36) % Plt Count 195 (150-400) K/uL Neut % (Auto) 62 (36-66) % Lymph % (Auto) 20 L (24-44) % [place] % (Auto) 17 H (2-6) % Eos % (Auto) 1 L (2-4) % Baso % (Auto) 0 (0-1) % Sodium (140-148) mmol/L Potassium (3.6-5.2) mmol/L Chloride (100-108) mmol/L Carbon Dioxide (21-32) mmol/L Anion Gap (5.0-14.0) mmol/L BUN (7-18) mg/dL Creatinine (0.8-1.3) mg/dL Est Cr Clr Drug Dosing Estimated GFR (MDRD) (>60) Glucose (74-106) mg/dL Calcium (8.5-10.1) mg/dL Total Bilirubin (0.2-1.0) mg/dL AST (15-37) U/L ALT (12-78) U/L Alkaline Phosphatase (46-116) U/L Troponin I (0.000-0.056) ng/mL C-Reactive Protein (0.0-0.3) mg/dL Total Protein (6.4-8.2) g/dL Albumin (3.4-5.0) g/dL Globulin (2.3-3.5) g/dL Albumin/Globulin Ratio (1.2-2.2) Lipase (73-393) U/L Urine Color Yellow Urine Appearance Clear Urine pH 7.0 (4.5-8.0) Ur Specific [place] 1.005 L (1.008-1.030) Urine Protein Trace (NEGATIVE) mg/dL Urine Glucose (UA) Normal (NEGATIVE) mg/dL Urine Ketones 50 H (NEGATIVE) mg/dL Urine Occult Blood Negative (NEGATIVE) Urine Nitrite Negative (NEGAITVE) Urine Bilirubin Small (NEGATIVE) Urine Urobilinogen 4 (NORMAL) mg/dL Ur Leukocyte Esterase Negative (NEGATIVE) Urine RBC 0-5 (0-5) Urine WBC 0-5 (0-5) Ur Epithelial Cells Not seen Amorphous Sediment Not seen Urine Bacteria Not seen Urine Mucus Not seen Urine Opiates Screen Negative (NEGATIVE) Ur Oxycodone Screen Negative (NEGATIVE) Urine Methadone Screen Negative (NEGATIVE) Ur Propoxyphene Screen Negative (NEGATIVE) Ur Barbiturates Screen Negative (NEGATIVE) Ur Tricyclics Screen Negative (NEGATIVE) Ur Phencyclidine Scrn Negative (NEGATIVE) Ur Amphetamine Screen Negative (NEGATIVE) U Methamphetamines Scrn Negative (NEGATIVE) Urine MDMA Screen Negative (NEGATIVE) U Benzodiazepines Scrn Presumptive positive H (NEGATIVE) U Cocaine Metab Screen Negative (NEGATIVE) U Marijuana (THC) Screen Negative (NEGATIVE) 02/02/18 Range/Units 04:50 WBC (4.5-11.0) K/uL RBC (4.30-5.90) M/uL Hgb (12.0-15.0) g/dL Hct (40.0-54.0) % MCV (80-98) fL MCH (27-31) pg MCHC (32-36) % Plt Count (150-400) K/uL Neut % (Auto) (36-66) % Lymph % (Auto) (24-44) % [place] % (Auto) (2-6) % Eos % (Auto) (2-4) % Baso % (Auto) (0-1) % Sodium 138 L (140-148) mmol/L Potassium 3.9 (3.6-5.2) mmol/L Chloride 106 (100-108) mmol/L Carbon Dioxide 26 (21-32) mmol/L Anion Gap 9.9 (5.0-14.0) mmol/L BUN 9 (7-18) mg/dL Creatinine 0.9 (0.8-1.3) mg/dL Est Cr Clr Drug Dosing 136.31 Estimated GFR (MDRD) > 60 (>60) Glucose 88 (74-106) mg/dL Calcium 8.1 L (8.5-10.1) mg/dL Total Bilirubin (0.2-1.0) mg/dL AST (15-37) U/L ALT (12-78) U/L Alkaline Phosphatase (46-116) U/L Troponin I (0.000-0.056) ng/mL C-Reactive Protein (0.0-0.3) mg/dL Total Protein (6.4-8.2) g/dL Albumin (3.4-5.0) g/dL Globulin (2.3-3.5) g/dL Albumin/Globulin Ratio (1.2-2.2) Lipase (73-393) U/L Urine Color Urine Appearance Urine pH (4.5-8.0) Ur Specific [place] (1.008-1.030) Urine Protein (NEGATIVE) mg/dL Urine Glucose (UA) (NEGATIVE) mg/dL Urine Ketones (NEGATIVE) mg/dL Urine Occult Blood (NEGATIVE) Urine Nitrite (NEGAITVE) Urine Bilirubin (NEGATIVE) Urine Urobilinogen (NORMAL) mg/dL Ur Leukocyte Esterase (NEGATIVE) Urine RBC (0-5) Urine WBC (0-5) Ur Epithelial Cells Amorphous Sediment Urine Bacteria Urine Mucus Urine Opiates Screen (NEGATIVE) Ur Oxycodone Screen (NEGATIVE) Urine Methadone Screen (NEGATIVE) Ur Propoxyphene Screen (NEGATIVE) Ur Barbiturates Screen (NEGATIVE) Ur Tricyclics Screen (NEGATIVE) Ur Phencyclidine Scrn (NEGATIVE) Ur Amphetamine Screen (NEGATIVE) U Methamphetamines Scrn (NEGATIVE) Urine MDMA Screen (NEGATIVE) U Benzodiazepines Scrn (NEGATIVE) U Cocaine Metab Screen (NEGATIVE) U Marijuana (THC) Screen (NEGATIVE) Med Orders - Current: Current Medications Acetaminophen (Tylenol) 650 mg PO Q4H PRN PRN Reason: Pain (Mild 1-3)/fever Docusate Sodium (Colace) 100 mg PO BID PRN PRN Reason: Constipation Fentanyl Citrate (Fentanyl In Ns 20 Mcg/Ml 30 Ml Systems Integration Advisor) 0 mcg IV ASDIRECTED PRN; Protocol PRN Reason: Pain Last Admin: 02/01/18 20:44 Dose: 600 mcg Sodium Chloride (Normal Saline) 1,000 mls @ 125 mls/hr IV ASDIRECTED WILLIAM Last Admin: 02/02/18 04:42 Dose: 125 mls/hr Lorazepam (Ativan) 1 mg IV Q6H PRN PRN Reason: Nausea/Vomiting Naloxone HCl (Narcan) 0.4 mg IVPUSH Q2M PRN PRN Reason: Respiratory Distress Ondansetron HCl (Zofran Odt) 4 mg PO Q6H PRN PRN Reason: Nausea able to take PO Ondansetron HCl (Zofran) 4 mg IV Q4H PRN PRN Reason: Nausea/Vomiting Zolpidem Tartrate (Ambien) 5 mg PO BEDTIME PRN PRN Reason: Sleep Discontinued Medications Al Hydroxide/Mg Hydroxide 15 (ml/ Lidocaine HCl 15 ml) 0 ml PO ONETIME ONE Stop: 02/01/18 15:03 Last Admin: 02/01/18 15:24 Dose: 15 ml Fentanyl (Sublimaze) 50 mcg IVPUSH ONETIME ONE Stop: 02/01/18 12:39 Last Admin: 02/01/18 12:45 Dose: 50 mcg Fentanyl (Sublimaze) 50 mcg IVPUSH ONETIME ONE Stop: 02/01/18 17:18 Last Admin: 02/01/18 17:25 Dose: 50 mcg Fentanyl (Sublimaze) Confirm Administered Dose 100 mcg .ROUTE .STK-MED ONE Stop: 02/01/18 17:41 Fentanyl (Sublimaze) 50 mcg IVPUSH ONETIME ONE Stop: 02/01/18 19:10 Last Admin: 02/01/18 19:24 Dose: 50 mcg Hyoscyamine (Hyomax-Sl) 0.125 mg SL ONETIME ONE Stop: 02/01/18 14:33 Last Admin: 02/01/18 14:52 Dose: 0.125 mg Lactated Ringer's (Ringers, Lactated) 1,000 mls @ 999 mls/hr IV BOLUS ONE Stop: 02/01/18 13:37 Last Admin: 02/01/18 12:45 Dose: 999 mls/hr Sodium Chloride (Normal Saline) 78 mls @ 3.5 mls/sec IV ASDIRECTED [facility] Last Admin: 02/01/18 13:13 Dose: 3.5 mls/sec Pantoprazole Sodium 80 mg/ (Sodium Chloride) 100 mls @ 10 mls/hr IV ASDIRECTED [facility] Last Admin: 02/01/18 20:49 Dose: 10 mls/hr Iopamidol (Isovue-300 (61%)) 124 ml IV . DIRECTED [facility] Last Admin: 02/01/18 13:12 Dose: 150 ml Ketorolac Tromethamine (Toradol) 30 mg IVPUSH ONETIME ONE Stop: 02/01/18 11:42 Last Admin: 02/01/18 11:50 Dose: 30 mg Lorazepam (Ativan) 1 mg IVPUSH ONETIME ONE Stop: 02/01/18 10:43 Last Admin: 02/01/18 10:55 Dose: 1 mg Midazolam HCl (Versed 1 Mg/Ml) Confirm Administered Dose 2 mg .ROUTE .STK-MED ONE Stop: 02/01/18 17:41 Ondansetron HCl (Zofran) 4 mg IVPUSH ONETIME ONE Stop: 02/01/18 11:42 Last Admin: 02/01/18 11:51 Dose: 4 mg Pantoprazole Sodium (Protonix Iv) 40 mg IVPUSH ONETIME ONE Stop: 02/01/18 16:12 Last Admin: 02/01/18 16:36 Dose: 40 mg Pantoprazole Sodium (Protonix Iv) 40 mg IVPUSH ONETIME ONE Stop: 02/01/18 19:54 Last Admin: 02/01/18 20:39 Dose: 40 mg Propofol (Diprivan 20 Ml) Confirm Administered Dose 200 mg .ROUTE .STK-MED ONE Stop: 02/01/18 17:41 Sodium Chloride (Saline Flush) 10 ml FLUSH ASDIRECTED PRN PRN Reason: Keep Vein Open Last Admin: 02/01/18 11:21 Dose: 10 ml Sodium Chloride (Saline Flush) 10 ml FLUSH ASDIRECTED PRN PRN Reason: Keep Vein Open Sodium Chloride (Saline Flush) 10 ml FLUSH ONETIME ONE Stop: 02/01/18 12:45 Last Admin: 02/01/18 13:12 Dose: 10 ml - Exam GI/Abdominal Exam: Soft, Non-Tender, No Organomegaly, No Distention
== END 2018-02-02 11:38 | disposition home or self-care (01) ==
LOC: JP.ED 10:33 → JP.SDS 17:08 → JP.MS 19:15
PROVIDERS: ADMIT Hospitalist; ATTEND Surgery
DX: K22.10 Ulcer of esophagus without bleeding (principal); K21.9 Gastro-esophageal reflux disease without esophagitis
CPT/HCPCS: 36415; 43239; 71046; 74177; 80048; 80053; 80305; 81001; 82962; 83690; 84484; 85025; 86140; 93005; 96361; 96372; 96374; 96375; 99285; A9270; C9113; J1885; J2060; J2250; J2405; J2704; J3010; J7030; J7050; J7120; 88305; 88312; 96376